=== PATIENT | female | born 1980 | race Caucasian/White ===

== ENCOUNTER 2016-10-12 11:32 | Emergency (ER) | payer OTHER ==
--- NOTE | 2016-10-12 12:02 | ED PDOC ---
Arrival/HPI - General Chief Complaint: Dizziness/Lightheaded Time Seen by Provider: 10/12/16 11:42 Historian: Patient - History of Present Illness Narrative History of Present Illness (Text): 10/12/16 12:02 A 36 year old female, whose past medical history includes vertigo on Betahistine from [place], presents to the emergency department complaining of episodes of dizziness since yesterday. Patient reports her symptoms of dizziness recurred yesterday but felt different from previous vertigo and were associated with shortness of breath and chest heaviness. She reports feeling stressed. Patient denies any fever, chills, nausea, vomiting, diarrhea, abdominal pain, urinary symptoms, cough, runny nose, headache, vision changes or any other complaints. Patients last menstrual period was on 10/07/16. Time/Duration: Other (yesterday) Symptom Course: Unchanged, Intermittent Quality: Other Context: Home Past Medical History - Provider Review Nursing Documentation Reviewed: Yes - Infectious Disease Hx of Infectious Diseases: None - Reproductive Menopause: No - Neurological Hx Dizziness: Yes - Psychiatric Hx Substance Use: No - Surgical History Hx Section: Yes - Anesthesia Hx Anesthesia: Yes Hx Anesthesia Reactions: No Family/Social History - Physician Review Nursing Documentation Reviewed: Yes Family/Social History: No Known Family HX Smoking Status: Unknown If Ever Smoked Hx Alcohol Use: No Hx Substance Use: No Allergies/Home Meds Allergies/Adverse Reactions: Allergies No Known Allergies Allergy (Verified 10/12/16 11:50) Home Medications: Home Meds Medication Instructions Recorded Confirmed Meclizine [Antivert] 25 mg PO PRN PRN 10/12/16 10/12/16 Review of Systems - Physician Review All systems were reviewed & negative as marked: Yes - Review of Systems Constitutional: absent: Fevers, Night Sweats Eyes: absent: Vision Changes ENT: absent: Rhinorrhea Respiratory: SOB. absent: Cough Cardiovascular: Chest Pain (Chest heaviness) Gastrointestinal: absent: Abdominal Pain, Diarrhea, Nausea, Vomiting Genitourinary Female: absent: Dysuria, Frequency, Hematuria, Urine Output Changes Neurological: Dizziness. absent: Headache Physical Exam Vital Signs Reviewed: Yes Vital Signs Temp Pulse Resp BP Pulse Ox 10/12/16 12:08 99.0 F 83 18 131/89 99 10/12/16 11:46 99.4 F 90 18 139/82 100 Temperature: Afebrile Blood Pressure: Normal Pulse: Regular Respiratory Rate: Normal Appearance: Positive for: Well-Appearing, Non-Toxic, Comfortable, Other (Obese [place] female) Pain Distress: None Mental Status: Positive for: Alert and Oriented X 3 - Systems Exam Head: Present: Atraumatic, Normocephalic Pupils: Present: PERRL Extroacular Muscles: Present: EOMI Conjunctiva: Present: Normal Mouth: Present: Moist Mucous Membranes Pharnyx: No: ERYTHEMA, EXUDATE, TONSILS ENLARGED Neck: Present: Normal Range of Motion Respiratory/Chest: Present: Clear to Auscultation, Good Air Exchange. No: Respiratory Distress, Accessory Muscle Use Cardiovascular: Present: Regular Rate and Rhythm, Normal S1, S2. No: Murmurs Abdomen: Present: Normal Bowel Sounds. No: Tenderness, Distention, Peritoneal Signs Back: Present: Normal Inspection Upper Extremity: Present: Normal Inspection. No: Cyanosis, Edema Lower Extremity: Present: Normal Inspection. No: Edema Neurological: Present: GCS=15, CN II-XII Intact, Speech Normal Skin: Present: Warm, Dry, Normal Color. No: Rashes Psychiatric: Present: Alert, Oriented x 3, Normal Insight, Normal Concentration Medical Decision Making ED Course and Treatment: 10/12/16 12:02 Impression: A 36 year old female with dizziness. Patient notes shortness of breath and chest heaviness. Differential Diagnosis included but are not limited to: Vertigo vs. Anxiety vs. PE Plan: -- EKG -- Labs -- Urinalysis -- Xanax and IV fluids -- Reassess and disposition Progress Notes: EKG shows NSR at 83 BPM with normal intervals, normal axis, no ST/T changes. Interpreted by me. 10/12/16 13:47 Patient with noted history of vertigo with normal exam and feeling like the dizziness is different from vertigo. EKG and labs are unremarkable. HCG is negative. CXR is unremarkable. She was given xanax and IVF and feels much better; patient has been feeling stressed and anxious, so symptoms may have been due to anxiety. Ok for d/c to f/u pmd. - Lab Interpretations Lab Results: 10/12/16 12:40 10/12/16 12:40 Lab Results 10/12/16 12:40: Lipase 86 10/12/16 12:40: Sodium 142, Potassium 3.8, Chloride 106, Carbon Dioxide 24, Anion Gap 16, BUN 12, Creatinine 0.6, Est GFR ( Amer) > 60, Est GFR (Non- Af Amer) > 60, Random Glucose 107, Calcium 9.5, Magnesium 2.0, Total Bilirubin 0.5, AST 24, ALT 34, Alkaline Phosphatase 67, Lactate Dehydrogenase 420, Total Creatine Kinase 130, Troponin I < 0.01, NT-Pro-B Natriuret Pep 61.1, Total Protein 8.0, Albumin 4.4, Globulin 3.6, Albumin/Globulin Ratio 1.2 10/12/16 12:40: PT 10.8, INR 1.00, APTT 29.2, D-Dimer, Quantitative 0.33 10/12/16 12:40: WBC 3.6 L, RBC 4.55, Hgb 12.4, Hct 37.0, MCV 81.3, MCH 27.3, MCHC 33.5, RDW 13.4, Plt Count 292, MPV 8.1, Gran % 55.3, Lymph % (Auto) 36.4 H , [place] % (Auto) 7.2 H, Eos % (Auto) 0.8 L, Baso % (Auto) 0.3, Gran # 1.99, Lymph # 1.3, [place] # 0.3, Eos # 0.0, Baso # 0.01 10/12/16 12:00: Urine Color Yellow, Urine Appearance Clear, Urine pH 6.5, Ur Specific [place] 1.015, Urine Protein Negative, Urine Glucose (UA) Negative, Urine Ketones Negative, Urine Blood Small H, Urine Nitrate Negative, Urine Bilirubin Negative, Urine Urobilinogen 0.2, Ur Leukocyte Esterase Negative, Urine RBC 5 - 10, Urine WBC 0 - 2, Ur Epithelial Cells Many, Urine Bacteria Many I have reviewed the lab results: Yes - RAD Interpretation Radiology Orders: 10/12/16 13:40 CHEST TWO VIEWS (PA/LAT) [RAD] Stat - Medication Orders Current Medication Orders: Discontinued Medications Alprazolam (Xanax) 0.25 mg PO STAT STA PRN Reason: Protocol Stop: 10/12/16 12:04 Last Admin: 10/12/16 12:35 Dose: 0.25 mg Sodium Chloride (Sodium Chloride 0.9%) 1,000 mls @ 999 mls/hr IV .[id number] STA Stop: 10/12/16 13:03 Last Admin: 10/12/16 12:48 Dose: 999 mls/hr - Scribe Statement The provider has reviewed the documentation as recorded by the Franibgeremias Fish Provider Scribe Attestation: All medical record entries made by the Scribe were at my direction and personally dictated by me. I have reviewed the chart and agree that the record accurately reflects my personal performance of the history, physical exam, medical decision making, and the department course for this patient. I have also personally directed, reviewed, and agree with the discharge instructions and disposition. Disposition/Present on Arrival - Present on Arrival Any Indicators Present on Arrival: No History of DVT/PE: No History of Uncontrolled Diabetes: No Urinary Catheter: No History of Decub. Ulcer: No History Surgical Site Infection Following: None - Disposition Have Diagnosis and Disposition been Completed?: Yes Diagnosis: Dizziness, Chest tightness Disposition Time: 14:10 Patient Plan: Discharge Patient Problems: Current Active Problems Problem Status Onset Chest tightness Acute Dizziness Acute Condition: GOOD Discharge Instructions (ExitCare): Anxiety (ED) Additional Instructions: Stress reduction. Follow up with your primary care doctor. Return to the emergency department if any new concerning symptoms. Referrals: Pardeep Hernandez MD [Medical Doctor] - Follow up with primary Forms: [employer] (Hebrew)
[2016-10-12] MEDS ORDERED: Sodium Chloride 0.9% 1,000 ML IV STA (12:03)
[2016-10-12 12:09] VITALS: TEMP 99
[2016-10-12 12:20] LABS: PH,URINE 6.5 (4.7-8.0); URINE BILIRUBIN NEGATIVE (NEGATIVE); URINE BLOOD SMALL (NEGATIVE); URINE GLUCOSE (UA) NEGATIVE (NEGATIVE); URINE KETONE NEGATIVE (NEGATIVE); URINE LEUKOCYTE ESTERASE NEGATIVE Leu/uL (NEGATIVE); URINE PROTEIN NEGATIVE mg/dL (<30 mg/dL); URINE UROBILINOGEN 0.2 E.U./dL (<1 E.U./dL)
[2016-10-12 12:23] LABS: URINE COLOR YELLOW (YELLOW)
[2016-10-12 12:24] LABS: URINE APPEARANCE CLEAR (CLEAR)
[2016-10-12 12:44] LABS: URINE BACTERIA MANY (NEG); URINE EPITHELIAL CELLS MANY /hpf (0-5); URINE WBC 0 - 2 /hpf (0-6)
[2016-10-12 12:54] LABS: BASO # 0.01 K/mm3 (0.0-2.0); BASO % 0.3 % (0.0-3.0); EOS % 0.8 % (1.5-5.0); GRAN # 1.99 (1.4-6.5); GRAN % 55.3 % (50.0-68.0); LYMPH # 1.3 (1.2-3.4); LYMPH % 36.4 % (22.0-35.0); MEAN CELL VOLUME 81.3 fl (80.0-105.0); MEAN CORPUSCULAR HEMOGLOBIN 27.3 pg (25.0-35.0); MEAN CORPUSCULAR HGB CONC 33.5 g/dl (31.0-37.0); MEAN PLATELET VOLUME 8.1 fl (7.0-11.0); MONO # 0.3 (0.1-0.6); MONO % 7.2 % (1.0-6.0); RED CELL DISTRIBUTION WIDTH 13.4 % (11.5-14.5); WHITE BLOOD COUNT 3.6 10^3/ul (4.5-11.0)
[2016-10-12 13:05] LABS: ALB/GLOB RATIO 1.2 (1.1-1.8); ALKALINE PHOSPHATASE 67 U/L (38-133); ALT/SGPT 34 U/L (7-56); AST/SGOT 24 U/L (15-39); BILIRUBIN,TOTAL 0.5 mg/dL (0.2-1.3); BLOOD UREA NITROGEN 12 mg/dL (7-21); CALCIUM 9.5 mg/dL (8.4-10.5); CARBON DIOXIDE 24 mmol/L (21-33); CHLORIDE 106 mmol/L (98-107); GFR AFRICAN-AMERICAN > 60; GLUCOSE,RANDOM 107 mg/dL (70-110); POTASSIUM 3.8 mmol/L (3.6-5.0); SODIUM 142 mmol/L (132-148)
[2016-10-12 13:17] LABS: D DIMER 0.33 mg/L FEU (0-0.50); PARTIAL THROMBOPLASTIN TIME 29.2 Seconds (23.7-30.8); TROPONIN I < 0.01 ng/mL
--- NOTE | 2016-10-12 14:13 | RAD ---
HISTORY: Shortness of breath COMPARISON: No prior. TECHNIQUE: Chest PA and lateral FINDINGS: LUNGS: The lungs are well inflated. There is bibasilar atelectasis. There is no focal consolidation. PLEURA: No significant pleural effusion identified. No pneumothorax apparent. CARDIOVASCULAR: Normal. OSSEOUS STRUCTURES: No significant abnormalities. VISUALIZED UPPER ABDOMEN: Normal. OTHER FINDINGS: None. IMPRESSION: Bibasilar atelectasis. No active pulmonary disease.
[2016-10-12 15:08] VITALS: BP 132/86; PULSE 82; RESP 16; O2SAT 100
--- NOTE | 2016-10-12 17:39 | CARD ---
APPROVED REPORT EKG Measurement Heart [id number] <Conclusion> Normal sinus rhythm Moderate voltage criteria for LVH, may be normal variant Borderline ECG
== END 2016-10-12 14:40 | disposition home or self-care (01) ==
LOC: ED 11:32
DX: R42 Dizziness and giddiness (principal); R07.9 Chest pain, unspecified
CPT/HCPCS: 71020; 80053; 81001; 82550; 83615; 83690; 83735; 83880; 84484; 85025; 85378; 85610; 85730; 93005; 99285; J7040